=== PATIENT | female | born 1945 | race Caucasian/White ===

== ENCOUNTER → 2017-01-15 | Outpatient (CLI) | payer BC ==
--- NOTE | 2017-01-15 11:44 | PCVCIMAG ---
APPROVED REPORT Study performed: 01/15/2017 08:55:15 EXAM: Comprehensive 2D, Doppler, and color-flow Echocardiogram Patient Location: Echo lab Other Information Study Quality: Adequate Indications Hypertension/HDD Edema, Hypertension, SVT. 2D Dimensions RVDd: 20.80 mm IVSd: 11.92 (7-11mm)LVOT Diam: 20.96 (18-24mm) LVDd: 44.36 mm PWd: 12.20 (7-11mm)Ascending Ao: 32.30 (22-36mm) LVDs: 38.87 (25-40mm) Left Atrium: 33.63 (27-40mm) Aortic Root: 30.11 mm LV Single Plane 4CH: 74.46 % Drew's LVEF: 26.83 % Volumes Left Atrial Volume (Systole) Single Plane 4CH: 41.42 mLSingle Plane 2CH: 35.46 mL LA ESV Index: 19.00 mL/m2 Aortic Valve AoV Peak Matthew.: 1.75 m/s AO Peak Gr.: 12.26 mmHg Mitral Valve E/A Ratio: 0.7 MV Decel. Time: 428.75 ms MV E Max Matthew.: 0.90 m/s MV A Matthew.: 1.26 m/s MV PHT: 124.34 ms IVRT: 145.33 ms TDI E/Lateral E': 10.00E/Medial E': 15.00 E': 0.09Medial E' Matthew.: 0.06 m/s Preload (E/e): 6.00 (0-8m/s)Lateral E' Matthew.: 0.09 m/s Pulmonary Valve PV Peak Gr.: 2.90 mmHg Pulmonary Vein P Vein S: 0.51 m/sP Vein A: 0.33 m/s P Vein D: 0.29 m/sP Vein A Dur.: 93.4 msec P Vein S/D Ratio: 1.76 Left Ventricle The left ventricle is normal size. There is normal LV segmental wall motion. There is normal left ventricular wall thickness. Left ventricular systolic function is normal. The left ventricular ejection fraction is within the normal range. LVEF is 55-60%. The left ventricular diastolic function is normal. Right Ventricle The right ventricle is normal size. The right ventricular systolic function is normal. Atria The left atrium size is normal. The right atrium size is normal. Aortic Valve The aortic valve is normal in structure. No aortic regurgitation is present. There is no aortic valvular stenosis. Mitral Valve The mitral valve is normal in structure. There is no mitral valve regurgitation noted. No evidence of mitral valve stenosis. Tricuspid Valve The tricuspid valve is normal in structure. There is no tricuspid valve regurgitation noted. Pulmonic Valve The pulmonary valve is normal in structure. There is no pulmonic valvular regurgitation. Great Vessels The aortic root is normal in size. IVC is normal in size and collapses with >50% inspiration Pericardium There is no pericardial effusion. <Conclusion> The left ventricle is normal size. Left ventricular systolic function is normal. The left ventricular ejection fraction is within the normal range. LVEF is 55-60%. The left ventricular diastolic function is normal. The right ventricle is normal size. The left atrium size is normal. The aortic valve is normal in structure. There is no mitral valve regurgitation noted. There is no tricuspid valve regurgitation noted. There is no pericardial effusion.
--- NOTE | 2017-01-15 18:12 | PCVCIMAG ---
EXAM: BILATERAL RENAL ULTRASOUND AND BILATERAL RENAL DUPLEX INDICATION: Hypertension FINDINGS: Right kidney: Length measures 9.4 cm. No hydronephrosis or extensive renal scarring. Right renal duplex: Adequate technical quality. No sonographic evidence of renal artery stenosis. The aortic to renal artery ratio is 0.9. The renal vein is patent. Left kidney: Length measures 9.9 cm. No hydronephrosis or extensive renal scarring. Left renal duplex: Adequate technical quality. No sonographic evidence of renal artery stenosis. The aortic to renal artery ratio is 0.9. The renal vein is patent. Bladder: No obvious abnormalities. IMPRESSION: No significant renal artery stenosis. No hydronephrosis bilaterally. LOC:[id number]
== END | disposition home or self-care (01) ==
LOC: PCVCIMAG 07:47
PROVIDERS: ATTEND Internal Medicine Cardiovascular Disease
DX: I10 Essential (primary) hypertension (principal); I47.1 Supraventricular tachycardia; E78.5 Hyperlipidemia, unspecified; Z86.79 Personal history of other diseases of the circulatory system; Z79.82 Long term (current) use of aspirin
CPT/HCPCS: 76770; 93306; 93975

== ENCOUNTER → 2018-12-11 | Outpatient (CLI) | payer MEDICARE | END | disposition home or self-care (01) | LOC: PCVCCLINIC 14:30 | PROVIDERS: ATTEND Internal Medicine Cardiovascular Disease | DX: I25.10 Atherosclerotic heart disease of native coronary artery without angina pectoris (principal); E78.5 Hyperlipidemia, unspecified; I65.23 Occlusion and stenosis of bilateral carotid arteries; I10 Essential (primary) hypertension; E78.00 Pure hypercholesterolemia, unspecified; K57.92 Diverticulitis of intestine, part unspecified, without perforation or abscess without bleeding; Z90.710 Acquired absence of both cervix and uterus; Z79.899 Other long term (current) drug therapy; Z79.82 Long term (current) use of aspirin; Z88.0 Allergy status to penicillin; Z88.2 Allergy status to sulfonamides; Z88.1 Allergy status to other antibiotic agents | CPT/HCPCS: 36415; 80061; 93005; G0463 ==

== ENCOUNTER → 2018-12-11 | Outpatient (CLI) | payer MEDICARE ==
--- NOTE | 2018-12-11 15:57 | PCVCIMAG ---
APPROVED REPORT Indications Stenosis Doppler Spectral Velocity Analysis PSV / EDVPSV / EDV ECA (R) 97 / 9 cm/sECA (L) 77 / 9 cm/s dICA (R) 73 / 20 cm/sdICA (L) 72 / 20 cm/s Jose (R) 63 / 16 cm/smICA (L) 83 / 16 cm/s pICA (R) 82 / 16 cm/spICA (L) 119 / 20 cm/s Bulb (R) 85 / 18 cm/sBulb (L) 108 / 19 cm/s dCCA (R) 59 / 9 cm/sdCCA (L) 80 / 15 cm/s mCCA (R) 76 / 12 cm/smCCA (L) 85 / 15 cm/s Vert (R) 40 / 7 cm/sVert (L) 49 / 14 cm/s ICA/CCA 1.12ICA/CCA 1.39 Basic Measurements Blood Pressure: Pulses: Right Left RightLeft Brachial(Sitting) 160/77peGy023/88mmHgTemporal Real Time B-Mode Imaging Vert. (R)AntegradeVert. (L)Antegrade Findings The right carotid bulb has moderate calcified plaque. The right proximal internal carotid artery shows <40% stenosis. The right common carotid artery shows no significant stenosis. The right external carotid artery shows no significant stenosis. The left carotid bulb has moderately severe plaque. The left proximal internal carotid artery shows 40-50% stenosis. The left common carotid artery shows no significant stenosis. The left external carotid artery shows no significant stenosis. Conclusion 1. Right internal carotid artery stenosis (<40%) 2. Left internal carotid artery stenosis (40-50%) 3. Antegrade vertebral flow.
== END | disposition home or self-care (01) ==
LOC: PCVCIMAG 15:28
PROVIDERS: ATTEND Internal Medicine Cardiovascular Disease
DX: I65.23 Occlusion and stenosis of bilateral carotid arteries (principal); I25.10 Atherosclerotic heart disease of native coronary artery without angina pectoris; E78.5 Hyperlipidemia, unspecified; I10 Essential (primary) hypertension; E78.00 Pure hypercholesterolemia, unspecified; K57.92 Diverticulitis of intestine, part unspecified, without perforation or abscess without bleeding
CPT/HCPCS: 36415; 80061; 93005; 93880; G0463